=== PATIENT | female | born 1975 | race Caucasian/White ===

== ENCOUNTER 2017-05-12 01:10 | Emergency (ER) | payer SELFPAY ==
[2017-05-12 02:39] LABS: BASOPHILS 0.2 % (0-2); EOSINOPHILS 1.6 % (0-7); HEMATOCRIT 38.5 % (36.0-48.0); IMMATURE GRANULOCYTES 0.2 % (0-5); LYMPHOCYTES 13.3 % (15-50); MCH 31.2 pg (26.0-34.0); MCHC 33.8 g/dL (31.0-37.0); MCV 92.3 fL (80.0-100.0); MONOCYTES 12.6 % (2-11); NEUTROPHILS 72.1 % (40-80); PLATELET COUNT 263 10x3/uL (130-400); RBC 4.17 10x6/uL (4.00-5.40); RDW 12.2 % (11.5-14.5); WBC 10.5 10x3/uL (4.8-10.8)
[2017-05-12 02:48] LABS: HCG SERUM NEGATIVE (NEGATIVE)
[2017-05-12 02:53] LABS: ALBUMIN 3.5 g/dL (3.4-5.0); ANION GAP 11.4 mmol/L (8-16); BILIRUBIN - TOTAL 0.5 mg/dL (0.2-1.3); CALCIUM 8.5 mg/dL (8.5-10.1); CARBON DIOXIDE 25.3 mmol/L (21.0-32.0); CREATININE - SERUM 0.9 mg/dL (0.6-1.3); POTASSIUM - SERUM 3.7 mmol/L (3.5-5.1); PROTEIN - SERUM 7.2 g/dL (6.4-8.2)
[2017-05-12 03:12] LABS: APPEARANCE CLOUDY (CLEAR); BILIRUBIN NEGATIVE (NEGATIVE); COLOR YELLOW (YELLOW); GLUCOSE NEGATIVE (NEGATIVE); KETONE NEGATIVE (NEGATIVE); NITRITE POSITIVE (NEGATIVE); PROTEIN 1+ mg/dL (NEGATIVE); UROBILINOGEN NORMAL (NORMAL)
[2017-05-12 03:13] LABS: BACTERIA MODERATE /hpf (NONE SEEN); EPITHELIAL CELLS 0-5 /hpf (0-5); RED CELLS - URINE 0-5 /hpf (0-5)
== END 2017-05-12 06:50 | disposition home or self-care (01) ==
LOC: D.ER 01:10
PROVIDERS: Family Medicine
DX: N10 Acute pyelonephritis (principal); F17.200 Nicotine dependence, unspecified, uncomplicated